=== PATIENT | female | born 1955 | race African-American/Black ===

== ENCOUNTER 2021-01-06 12:49 | Emergency (ER) | payer OTHER ==
[~2021-01-06] VITALS: Ht 177.8 cm; Wt 91.0 kg
[2021-01-06] MEDS ORDERED: IBUPROFEN 600MG TABLET PO ONE (13:15)
[2021-01-06] MEDS ORDERED: TETANUS, DIPHTHERIA, PERTUSSIS VAC/PF 0.5ML (>7YR OLD) IM ONE (13:15)
[2021-01-06] MEDS ORDERED: BACITRACIN ZINC OINT UDPKT TOP ONE (13:15)
[2021-01-06] MEDS ORDERED: LIDOCAINE HCL/PF 1% 10 MG/ML 5ML VIAL IJ ONE (13:15)
[2021-01-06 13:23] VITALS: BP 160/80
[2021-01-06] MEDS ORDERED: IBUP-2029 PO (15:21)
== END 2021-01-06 16:06 | disposition home or self-care (01) ==
LOC: ER 12:49
DX: S61.011A Laceration without foreign body of right thumb without damage to nail, initial encounter (principal); E11.9 Type 2 diabetes mellitus without complications; I10 Essential (primary) hypertension; W25.XXXA Contact with sharp glass, initial encounter; Y93.89 Activity, other specified; Y92.89 Other specified places as the place of occurrence of the external cause; Z23 Encounter for immunization
CPT/HCPCS: 73130; 90471; 90715; 99283; A4217; J3490; Z7610

== ENCOUNTER 2022-10-13 12:16 | Emergency (ER) | payer MEDICARE, OTHER ==
[~2022-10-13] VITALS: Ht 172.7 cm; Wt 80.0 kg
[~2022-10-13 12:16] MED LIST: IBUP-2029 PO
[2022-10-13] MEDS ORDERED: IBUPROFEN 400MG TABLET PO ONE (13:15)
[2022-10-13 13:39] VITALS: BP 136/80
[2022-10-13] MEDS ORDERED: IBUP-2028 MT (15:58)
== END 2022-10-13 16:30 | disposition home or self-care (01) ==
LOC: ER 12:16
DX: M25.561 Pain in right knee (principal); M25.511 Pain in right shoulder; F31.9 Bipolar disorder, unspecified; F20.9 Schizophrenia, unspecified; I10 Essential (primary) hypertension; E11.9 Type 2 diabetes mellitus without complications; J45.909 Unspecified asthma, uncomplicated; W01.0XXA Fall on same level from slipping, tripping and stumbling without subsequent striking against object, initial encounter; Y93.89 Activity, other specified; Y92.018 Other place in single-family (private) house as the place of occurrence of the external cause
CPT/HCPCS: 73030; 73560; 99284